=== PATIENT | female | born 1950 | race Two or more races ===

== ENCOUNTER → 2017-01-22 | Outpatient (CLI) | payer BC, MEDICARE | END | disposition home or self-care (01) | LOC: CFH 10:17 | PROVIDERS: ATTEND Specialist | DX: Z12.31 Encounter for screening mammogram for malignant neoplasm of breast (principal) | CPT/HCPCS: 77063; G0202 ==

== ENCOUNTER → 2018-03-11 | Outpatient (CLI) | payer BC, MEDICARE | END | disposition home or self-care (01) | LOC: CFH 08:51 | PROVIDERS: ATTEND Specialist | DX: Z12.31 Encounter for screening mammogram for malignant neoplasm of breast (principal) | CPT/HCPCS: 77063; 77067 ==

== ENCOUNTER 2018-09-10 10:08 | Outpatient (CLI) | payer BC, MEDICARE | END 2018-09-10 23:59 | disposition home or self-care (01) | LOC: CFH 10:08 | PROVIDERS: ATTEND Internal Medicine | DX: M79.641 Pain in right hand (principal) ==

== ENCOUNTER → 2019-04-01 | Outpatient (CLI) | payer MEDICARE, BC | END | disposition home or self-care (01) | LOC: CFH 08:44 | PROVIDERS: ATTEND Internal Medicine Cardiovascular Disease | DX: I08.0 Rheumatic disorders of both mitral and aortic valves (principal); I42.9 Cardiomyopathy, unspecified; I10 Essential (primary) hypertension; E78.5 Hyperlipidemia, unspecified; Z87.891 Personal history of nicotine dependence | CPT/HCPCS: 93306 ==

== ENCOUNTER 2019-04-08 09:23 | Outpatient (CLI) | payer MEDICARE, BC | END 2019-04-08 23:59 | disposition home or self-care (01) | LOC: CFH 09:23 | PROVIDERS: ATTEND Specialist | DX: Z12.31 Encounter for screening mammogram for malignant neoplasm of breast (principal); N63.0 Unspecified lump in unspecified breast; N64.89 Other specified disorders of breast | CPT/HCPCS: 77063; 77067 ==

== ENCOUNTER 2020-01-26 01:57 | Emergency (ER) | payer BC, MEDICARE ==
[~2020-01-26] VITALS: Ht 154.9 cm; Wt 66.0 kg
[2020-01-26] MEDS ORDERED: SODIUM CHLORIDE FLUSH 10ML SYR IVF ONE (02:30)
[2020-01-26 03:07] LABS: ALANINE AMINOTRANSFERASE 49 U/L (12-78); ALBUMIN 3.3 g/dL (3.4-5.0); ANION GAP 4 mmol/L (5-15); CHLORIDE 104 mmol/L (98-107); CREATININE 0.97 mg/dL (0.55-1.02)
[2020-01-26 03:10] LABS: ALKALINE PHOSPHATASE 62 U/L (45-117); TOTAL PROTEIN 7.3 g/dL (6.4-8.2)
[2020-01-26 03:11] LABS: BASOPHILS % (AUTO) 1 % (0-1); EOSINOPHILS % (AUTO) 0 % (1-7); LYMPHOCYTES % (AUTO) 25 % (22-44); MEAN CORPUSCULAR HEMOGLOBIN 30.7 pg (27.0-34.8); MEAN CORPUSCULAR HGB CONC 34.2 g/dL (32.4-35.8); MONOCYTES % (AUTO) 14 % (2-9); NEUTROPHILS % (AUTO) 61 % (42-75); PLATELET COUNT 164 x10^3/uL (130-400); RED BLOOD COUNT 4.28 x10^6/uL (3.82-5.3)
[2020-01-26 03:18] LABS: MD NO
[2020-01-26] MEDS ORDERED: OMNIPAQUE 350 MG/ML, 100ML BOTTLE ONE (03:45)
[2020-01-26 05:00] LABS: MICROSCOPIC AUTO
[2020-01-26] MEDS ORDERED: MAALOX/HYOSCYAMINE/LIDOCAINE 45 ML BTL PO ONE (05:30)
[2020-01-26] MEDS ORDERED: MAALOX/HYOSCYAMINE/LIDOCAINE 45 ML BTL ONE (05:58)
[2020-01-26 06:07] VITALS: BP 121/72
== END 2020-01-26 06:27 | disposition home or self-care (01) ==
LOC: ED 06:13
DX: R10.13 Epigastric pain (principal); R94.31 Abnormal electrocardiogram [ECG] [EKG]; R11.0 Nausea; I10 Essential (primary) hypertension; E78.5 Hyperlipidemia, unspecified
CPT/HCPCS: 36415; 74177; 80053; 81001; 85025; 87086; 93005; 99285; Q9967

== ENCOUNTER 2020-01-26 23:14 | Emergency (ER) | payer BC, MEDICARE ==
[~2020-01-26] VITALS: Ht 154.9 cm; Wt 66.3 kg
[2020-01-26 23:57] LABS: BASOPHILS % (AUTO) 1 % (0-1); EOSINOPHILS % (AUTO) 0 % (1-7); LYMPHOCYTES % (AUTO) 21 % (22-44); MEAN CORPUSCULAR HEMOGLOBIN 30.4 pg (27.0-34.8); MEAN PLATELET VOLUME 8.6 fL (7.4-10.4); MONOCYTES % (AUTO) 10 % (2-9); NEUTROPHILS % (AUTO) 69 % (42-75); PLATELET COUNT 190 x10^3/uL (130-400); RED BLOOD COUNT 4.41 x10^6/uL (3.82-5.3); RED CELL DISTRIBUTION WIDTH 14.5 % (9.6-15.2)
[2020-01-27] LABS: MD NO
[2020-01-27 00:08] LABS: ALANINE AMINOTRANSFERASE 50 U/L (12-78); ALBUMIN 3.4 g/dL (3.4-5.0); ANION GAP 6 mmol/L (5-15); CALCIUM 8.3 mg/dL (8.5-10.1); CHLORIDE 104 mmol/L (98-107); CREATININE 1.01 mg/dL (0.55-1.02)
[2020-01-27 00:13] LABS: ALKALINE PHOSPHATASE 63 U/L (45-117); TOTAL PROTEIN 7.6 g/dL (6.4-8.2); TROPONIN I < 0.015 ng/mL (0.000-0.045)
[2020-01-27] MEDS ORDERED: MORPHINE SULFATE 4 MG/ML, 1ML ONE ×2 (00:49→02:55)
[2020-01-27] MEDS ORDERED: ONDANSETRON 2MG/ML, 2ML ONE (00:49)
[2020-01-27] MEDS: MORPHINE SULFATE 4 MG/ML, 1ML IVPush PRN ×2 (00:53→02:58)
[2020-01-27] MEDS ORDERED: ONDANSETRON 2MG/ML, 2ML IVPush ONE (01:00)
--- NOTE | 2020-01-27 01:01 | NUR ---
report received from julianna raphael
--- NOTE | 2020-01-27 02:10 | NUR ---
pt resting in [facility], at bedside
[2020-01-27] MEDS ORDERED: MORPHINE SULFATE 4 MG/ML, 1ML IVPush PRN (02:30)
--- NOTE | 2020-01-27 02:45 | NUR ---
requesting pain and nausea medication, will medicate per emar
[2020-01-27] MEDS ORDERED: PROMETHAZINE 25 MG/ML, 1ML ONE (03:13)
[2020-01-27] MEDS ORDERED: PROMETHAZINE 25 MG/ML, 1ML IM ONE (03:30)
--- NOTE | 2020-01-27 04:00 | NUR ---
PT REPORTS BETTER RELIEF FROM PHENERGAN. MD REQUEST PT TO TRY PO CHALLENGE. WATER AND CRACKERS BROUGHT TO PT
--- NOTE | 2020-01-27 04:30 | NUR ---
PT PASSED PO CHALLENGE
[2020-01-27 05:00] VITALS: BP 108/58
--- NOTE | 2020-01-27 05:29 | NUR ---
EDUCATION GIVEN TO PT AND ABOUT MEDICATIONS PRESCRIBED WITH DISCHARGE AND MEDICATIONS PRESCRIBED FROM PREVIOUS VISIT AND NEEDING TO GIVE FEW DAYS FOR PPI TO WORK. PT ALSO EDUCATED ON BROTH AND BLAND DIET AND SLOWLY WORKING WAY UP TO REGULAR DIET TO HELP WITH SYMPTOMS. PT AND VERBALIZE UNDERSTANDING.
== END 2020-01-27 05:33 | disposition home or self-care (01) ==
LOC: ED 23:57
DX: K29.00 Acute gastritis without bleeding (principal); I10 Essential (primary) hypertension; E78.5 Hyperlipidemia, unspecified; Z90.49 Acquired absence of other specified parts of digestive tract; R94.31 Abnormal electrocardiogram [ECG] [EKG]
CPT/HCPCS: 36415; 74022; 76700; 80053; 83605; 83690; 84484; 85025; 93005; 96372; 96374; 96375; 96376; 99285; J2270; J2405; J2550

== ENCOUNTER 2020-02-04 12:38 | Emergency (ER) | payer BC, MEDICARE ==
[~2020-02-04] VITALS: Ht 154.9 cm; Wt 64.0 kg
--- NOTE | 2020-02-04 13:20 | NUR ---
PT. HAS C/O ABDOMINAL PAIN X SINCE JAN 25. PT. REPORTS ASSOCIATED NAUSEA W/OUT VOMITING HAS HAD YOLA MANY YEARS AGO
[2020-02-04 14:39] LABS: BASOPHILS % (AUTO) 1 % (0-1); EOSINOPHILS % (AUTO) 1 % (1-7); LYMPHOCYTES % (AUTO) 18 % (22-44); MEAN CORPUSCULAR HEMOGLOBIN 30.3 pg (27.0-34.8); MEAN CORPUSCULAR HGB CONC 33.5 g/dL (32.4-35.8); MEAN PLATELET VOLUME 7.3 fL (7.4-10.4); MONOCYTES % (AUTO) 10 % (2-9); NEUTROPHILS % (AUTO) 70 % (42-75); PLATELET COUNT 598 x10^3/uL (130-400); RED BLOOD COUNT 4.03 x10^6/uL (3.82-5.3); RED CELL DISTRIBUTION WIDTH 14.1 % (9.6-15.2)
[2020-02-04 14:45] LABS: ALANINE AMINOTRANSFERASE 66 U/L (12-78); ALBUMIN 3.1 g/dL (3.4-5.0); ANION GAP 6 mmol/L (5-15); CALCIUM 8.6 mg/dL (8.5-10.1); CHLORIDE 106 mmol/L (98-107); CREATININE 0.81 mg/dL (0.55-1.02)
--- NOTE | 2020-02-04 14:45 | NUR ---
PT RESTING ON [place].
[2020-02-04 14:48] LABS: ALKALINE PHOSPHATASE 92 U/L (45-117); BILIRUBIN,TOTAL 0.9 mg/dL (0.2-1.0); MD NO; TOTAL PROTEIN 7.4 g/dL (6.4-8.2)
--- NOTE | 2020-02-04 16:35 | NUR ---
PT AMBULATED TO BATHROOM. READY FOR DC
[2020-02-04 16:46] VITALS: BP 135/86
--- NOTE | 2020-02-04 16:46 | NUR ---
Patient/Caregiver given discharge instructions and they have confirmed that they understand the instructions. Patient ambulatory with steady gait.
== END 2020-02-04 16:48 | disposition home or self-care (01) ==
LOC: ED 14:01
DX: K85.90 Acute pancreatitis without necrosis or infection, unspecified (principal); R10.13 Epigastric pain; I10 Essential (primary) hypertension; E78.5 Hyperlipidemia, unspecified
CPT/HCPCS: 36415; 71045; 80053; 83690; 85025; 87635; 99284

== ENCOUNTER → 2020-02-25 | Outpatient (CLI) | payer BC, MEDICARE | END | disposition home or self-care (01) | LOC: CFH 09:03 | PROVIDERS: ATTEND Internal Medicine Cardiovascular Disease | DX: I08.0 Rheumatic disorders of both mitral and aortic valves (principal); I10 Essential (primary) hypertension; Z87.891 Personal history of nicotine dependence | CPT/HCPCS: 93306 ==

== ENCOUNTER 2020-06-09 08:24 | Outpatient (CLI) | payer MEDICARE, OTHER | END 2020-06-09 23:59 | disposition home or self-care (01) | LOC: CFH 08:24 | PROVIDERS: ATTEND Obstetrics & Gynecology Gynecology | DX: Z12.31 Encounter for screening mammogram for malignant neoplasm of breast (principal); M85.88 Other specified disorders of bone density and structure, other site | CPT/HCPCS: 77063; 77067; 77080 ==

== ENCOUNTER 2020-08-19 10:39 | Day surgery (SDC) | payer OTHER, MEDICARE ==
[~2020-08-19] VITALS: Ht 160 cm; Wt 62.0 kg
[~2020-08-19 10:39] MED LIST: ATOR20TA37 PO; DRON400T6 PO; LOSA100T14 PO; METO-93 PO; POTA20TA14 PO
[2020-08-19] MEDS ORDERED: SODIUM CHLORIDE 0.9% 1,000 ML IV ONE (11:30)
[2020-08-19] MEDS ORDERED: NALOXONE 0.4 MG/ML, 1ML IVPush PRN ×2 (11:30)
[2020-08-19] MEDS ORDERED: SACU1TAB PO (11:55)
[2020-08-19] MEDS ORDERED: IRON PO (11:55)
[2020-08-19] MEDS ORDERED: FURO20TA3 PO (11:55)
[2020-08-19 11:56] VITALS: BP 128/86
[2020-08-19] MEDS ORDERED: PROPOFOL 10 MG/ML, 20ML ONE (14:00)
== END 2020-08-19 14:00 | disposition home or self-care (01) ==
LOC: CACL 10:39
PROVIDERS: ATTEND Internal Medicine Cardiovascular Disease
DX: I34.0 Nonrheumatic mitral (valve) insufficiency (principal); I11.0 Hypertensive heart disease with heart failure; I50.43 Acute on chronic combined systolic (congestive) and diastolic (congestive) heart failure; I42.0 Dilated cardiomyopathy; I49.3 Ventricular premature depolarization; E78.5 Hyperlipidemia, unspecified; Z20.822 Contact with and (suspected) exposure to COVID-19; Z79.899 Other long term (current) drug therapy
CPT/HCPCS: 87635; 93312; 93321; 93325; J2704

== ENCOUNTER 2020-08-22 05:47 | Day surgery (SDC) | payer OTHER, MEDICARE ==
[~2020-08-22] VITALS: Ht 160 cm; Wt 60.9 kg
[~2020-08-22 05:47] MED LIST changes: +FURO20TA3 PO; +IRON PO; +SACU1TAB PO
[2020-08-22 06:21] VITALS: BP 104/71
[2020-08-22 06:48] LABS: ANION GAP 6 mmol/L (5-15); CALCIUM 9.5 mg/dL (8.5-10.1); CHLORIDE 110 mmol/L (98-107)
[2020-08-22 06:49] LABS: BASOPHILS % (AUTO) 1 % (0-1); CREATININE 0.95 mg/dL (0.55-1.02); EOSINOPHILS % (AUTO) 3 % (1-7); LYMPHOCYTES % (AUTO) 39 % (22-44); MEAN CORPUSCULAR HEMOGLOBIN 29.9 pg (27.0-34.8); MEAN CORPUSCULAR HGB CONC 33.8 g/dL (32.4-35.8); MEAN PLATELET VOLUME 9.2 fL (7.4-10.4); MONOCYTES % (AUTO) 8 % (2-9); NEUTROPHILS % (AUTO) 50 % (42-75); PLATELET COUNT 235 x10^3/uL (130-400); RED BLOOD COUNT 4.84 x10^6/uL (3.82-5.3); RED CELL DISTRIBUTION WIDTH 16.3 % (9.6-15.2)
[2020-08-22] MEDS ORDERED: MIDAZOLAM 1 MG/ML, 5ML ONE (08:20)
[2020-08-22] MEDS ORDERED: FENTANYL PF 100 MCG/2ML ONE (08:20)
[2020-08-22] MEDS ORDERED: BIVALIRUDIN 250 MG ONE (08:21)
[2020-08-22] MEDS ORDERED: LIDOCAINE-MPF 1%, 5ML ONE (08:21)
[2020-08-22] MEDS ORDERED: TICAGRELOR 90 MG TABLET ONE (08:21)
[2020-08-22] MEDS ORDERED: HEPARIN 1,000 UNITS/ML, 10ML ONE (08:21)
[2020-08-22] MEDS ORDERED: VERAPAMIL 2.5 MG/ML, 2ML ONE (08:21)
[2020-08-22] MEDS ORDERED: SODIUM CHLORIDE 0.9% 1,000 ML IV SCH (10:00)
== END 2020-08-22 10:59 | disposition home or self-care (01) ==
LOC: CACL 05:47
PROVIDERS: ATTEND Internal Medicine Cardiovascular Disease
DX: I42.0 Dilated cardiomyopathy (principal); I34.0 Nonrheumatic mitral (valve) insufficiency; I11.0 Hypertensive heart disease with heart failure; I50.43 Acute on chronic combined systolic (congestive) and diastolic (congestive) heart failure; I49.3 Ventricular premature depolarization; Z79.899 Other long term (current) drug therapy
CPT/HCPCS: 36415; 80048; 85025; 93460; 99156; C1769; C1894; J1644; J2250; J3010; Q9967; J0583

== ENCOUNTER → 2020-09-15 | Outpatient (CLI) | payer OTHER, MEDICARE ==
[~2020-09-15] MED LIST changes: +ALBUMIN HUMAN 25% 50 ML IV ONE; +ALBUMIN HUMAN 25% 50 ML ONE; +ASPI81TA45 PO; +CALCIUM CHLORIDE 10%, 10ML SYR ONE; +CHLORHEXIDINE 15 ML UDC MM PRN; +DO NOT GIVE MC SCH; +HEPARIN 1,000 UNITS/ML, 30ML ONE; +INSULIN LISPRO 100 UNITS/ML, PEN SQ-INSULIN SCH; +LIDOCAINE 2%, 20ML ONE; +MAGNESIUM SULFATE PMX 2GM/50ML 50 ML IVPB ONE; +MAGNESIUM SULFATE PMX 2GM/50ML 50 ML ONE; +MANNITOL 0.25 GM/ML, 50ML ONE; +MUPIROCIN OINT 2%, 15GM NAS SCH; +OMEP-110 PO; +OXYC5TAB98 PO; +SODIUM BICARBONATE 1 MEQ/ML, 50ML VIAL ONE; +SODIUM CHLORIDE FLUSH 10ML SYR IVF SCH; +SPIR25TA5 PO; +WARF2.5T32 PO; +methylPREDNISolone SOD SUCC 125 MG/2 ML ONE
[2020-09-15 14:26] LABS: BASOPHILS % (AUTO) 1 % (0-1); EOSINOPHILS % (AUTO) 2 % (1-7); LYMPHOCYTES % (AUTO) 37 % (22-44); MEAN CORPUSCULAR HGB CONC 33.3 g/dL (32.4-35.8); MEAN PLATELET VOLUME 8.9 fL (7.4-10.4); MONOCYTES % (AUTO) 9 % (2-9); NEUTROPHILS % (AUTO) 51 % (42-75); PLATELET COUNT 223 x10^3/uL (130-400); RED BLOOD COUNT 4.86 x10^6/uL (3.82-5.3); RED CELL DISTRIBUTION WIDTH 16.8 % (9.6-15.2)
[2020-09-15 14:30] LABS: MICROSCOPIC AUTO
[2020-09-15 14:37] LABS: ALANINE AMINOTRANSFERASE 42 U/L (12-78); ALBUMIN 4.3 g/dL (3.4-5.0); ANION GAP 3 mmol/L (5-15); CALCIUM 9.2 mg/dL (8.5-10.1); CHLORIDE 104 mmol/L (98-107); CREATININE 0.92 mg/dL (0.55-1.02)
[2020-09-15 14:40] LABS: ALKALINE PHOSPHATASE 62 U/L (45-117); BILIRUBIN,TOTAL 1.7 mg/dL (0.2-1.0); TOTAL PROTEIN 8.3 g/dL (6.4-8.2)
[2020-09-15 14:42] LABS: INTERNATIONAL NORMALIZED RATIO 1.04 (0.93-1.1); PROTHROMBIN TIME 11.1 Seconds (9.6-11.5)
== END | disposition home or self-care (01) ==
LOC: CVU 11:56
PROVIDERS: ATTEND Thoracic Surgery (Cardiothoracic Vascular Surgery)
DX: I34.0 Nonrheumatic mitral (valve) insufficiency (principal); I10 Essential (primary) hypertension; E78.5 Hyperlipidemia, unspecified; Z79.01 Long term (current) use of anticoagulants; Z79.899 Other long term (current) drug therapy
CPT/HCPCS: 36415; 71046; 80053; 81001; 83036; 85025; 85610; 85730; 86900; 93005; 93880; J1644; J2150; J2930; J3475; J3490; P9047; 86850; 86923

== ENCOUNTER 2020-09-16 03:43 | Inpatient (IN) | payer OTHER, MEDICARE ==
[~2020-09-16] VITALS: Ht 160 cm; Wt 65.0 kg
[~2020-09-16 03:43] MED LIST changes: -ALBUMIN HUMAN 25% 50 ML IV ONE; -ALBUMIN HUMAN 25% 50 ML ONE; -ASPI81TA45 PO; -CALCIUM CHLORIDE 10%, 10ML SYR ONE; -CHLORHEXIDINE 15 ML UDC MM PRN; -DO NOT GIVE MC SCH; -HEPARIN 1,000 UNITS/ML, 30ML ONE; -INSULIN LISPRO 100 UNITS/ML, PEN SQ-INSULIN SCH; -LIDOCAINE 2%, 20ML ONE; -MAGNESIUM SULFATE PMX 2GM/50ML 50 ML IVPB ONE; -MAGNESIUM SULFATE PMX 2GM/50ML 50 ML ONE; -MANNITOL 0.25 GM/ML, 50ML ONE; -MUPIROCIN OINT 2%, 15GM NAS SCH; -OMEP-110 PO; -OXYC5TAB98 PO; -SODIUM BICARBONATE 1 MEQ/ML, 50ML VIAL ONE; -SODIUM CHLORIDE FLUSH 10ML SYR IVF SCH; -SPIR25TA5 PO; -WARF2.5T32 PO; -methylPREDNISolone SOD SUCC 125 MG/2 ML ONE
[2020-09-16 03:57] VITALS: BP_SYST 123; BP_SYST 127; BP_DIAS 78; BP_DIAS 79
[2020-09-16] MEDS ORDERED: MUPIROCIN OINT 2%, 22GM ONE (04:29)
[2020-09-16] MEDS ORDERED: CHLORHEXIDINE 15 ML UDC MM SCH (04:30)
[2020-09-16] MEDS ORDERED: DO NOT GIVE MC SCH (04:30)
[2020-09-16] MEDS ORDERED: INSULIN LISPRO 100 UNITS/ML, PEN SQ-INSULIN SCH (04:30)
[2020-09-16] MEDS: MUPIROCIN OINT 2%, 15GM TP SCH ×2 (04:45→18:23)
[2020-09-16] MEDS ORDERED: EPINEPHRINE 1 MG/ML, 1ML ONE (06:45)
[2020-09-16] MEDS ORDERED: AMINOCAPROIC ACID 250 MG/ML, 20ML ONE ×2 (06:45)
[2020-09-16] MEDS ORDERED: PHENYLEPHRINE 10 MG/ML ONE (06:45)
[2020-09-16] MEDS ORDERED: ROCURONIUM 10MG/ML,5ML ONE ×2 (06:45)
[2020-09-16] MEDS ORDERED: PROPOFOL 10 MG/ML, 20ML ONE (06:45)
[2020-09-16] MEDS ORDERED: MIDAZOLAM 10MG/2 ML ONE (06:46)
[2020-09-16] MEDS ORDERED: FENTANYL PF 250 MCG/5ML ONE ×4 (06:46)
[2020-09-16] MEDS ORDERED: DEXMEDETOMIDINE 200 MCG in SODIUM CHLORIDE 0.9% 48 ML IV PRN (07:30)
[2020-09-16] MEDS ORDERED: VANCOMYCIN 900 MG in SODIUM CHLORIDE 0.9% 100 ML IV PRN (07:30)
[2020-09-16] MEDS ORDERED: MANNITOL PMX 20% 500 ML IVPB PRN (07:30)
[2020-09-16] MEDS ORDERED: POTASSIUM CHLORIDE 80 MEQ, SODIUM BICARBONATE 8.4% 10 MEQ, MAGNESIUM SULFATE 0.5 GM, LI... IV PRN (07:30)
[2020-09-16] MEDS ORDERED: CEFUROXIME 1.5 GM in SODIUM CHLORIDE 0.9% 50 ML IVPB PRN (07:30)
[2020-09-16] MEDS ORDERED: REGULAR INSULIN 100 UNITS in SODIUM CHLORIDE 0.9% 99 ML IV PRN ×2 (07:30→11:00)
[2020-09-16] MEDS ORDERED: ALBUMIN HUMAN 5% 500 ML IV PRN ×2 (07:30→11:00)
[2020-09-16] MEDS ORDERED: EPINEPHRINE 5 MG in SODIUM CHLORIDE 0.9% 245 ML IV PRN ×2 (07:30→11:00)
[2020-09-16] MEDS ORDERED: PHENYLEPHRINE 50 MG in SODIUM CHLORIDE 0.9% 245 ML IV PRN (07:30)
[2020-09-16] MEDS: SODIUM CHLORIDE FLUSH 10ML SYR IVF SCH ×3 (09:00→20:08)
[2020-09-16] MEDS ORDERED: PROTAMINE SULFATE 10 MG/ML, 25ML ONE (09:03)
[2020-09-16] MEDS ORDERED: CALCIUM CHLORIDE 10%, 10ML SYR ONE (10:26)
[2020-09-16] MEDS ORDERED: AMIODARONE 50 MG/ML, 3ML ONE (10:26)
[2020-09-16] MEDS ORDERED: SODIUM BICARB 8.4%, 50ML SYRINGE ONE (10:27)
[2020-09-16] MEDS ORDERED: FENTANYL PF 100 MCG/2ML ONE (10:37)
[2020-09-16] MEDS ORDERED: DEXMEDETOMIDINE 400 MCG in SODIUM CHLORIDE 0.9% 96 ML IV PRN (11:00)
[2020-09-16] MEDS ORDERED: INSULIN REGULAR 100 UNITS/ML, 3ML VIAL IVPush PRN (11:00)
[2020-09-16] MEDS ORDERED: morphine SULFATE 10 MG/ML, 1ML IVPush PRN (11:00)
[2020-09-16] MEDS ORDERED: GLUCAGON 1 MG IM PRN (11:00)
[2020-09-16] MEDS ORDERED: SODIUM BICARB 8.4%, 50ML SYRINGE IV PRN (11:00)
[2020-09-16] MEDS ORDERED: SODIUM CHLORIDE 0.9% 1,000 ML IV SCH (11:00)
[2020-09-16] MEDS ORDERED: DEXTROSE 4 GM TAB.CHEW PO PRN (11:00)
[2020-09-16] MEDS ORDERED: FENTANYL PF 100 MCG/2ML IV PRN (11:00)
[2020-09-16] MEDS ORDERED: ONDANSETRON 2MG/ML, 2ML IVPush PRN (11:00)
[2020-09-16] MEDS ORDERED: PROMETHAZINE 25 MG SUPP PR PRN (11:00)
[2020-09-16] MEDS ORDERED: MIDAZOLAM 1 MG/ML, 2ML IV PRN (11:00)
[2020-09-16] MEDS ORDERED: CALCIUM CHLORIDE 13.6 MEQ in SODIUM CHLORIDE 0.9% 100 ML IVPB PRN (11:00)
[2020-09-16] MEDS: KSCALE TO 4.5 IV SCH ×3 (11:00→23:00)
[2020-09-16] MEDS ORDERED: LACTATED RINGERS 500 ML IV PRN (11:00)
[2020-09-16] MEDS ORDERED: DEXTROSE 50%, 50ML SYRINGE IVPush PRN (11:00)
[2020-09-16] MEDS ORDERED: VASOPRESSIN 20 UNIT in SODIUM CHLORIDE 0.9% 99 ML IV PRN (11:00)
[2020-09-16] MEDS: ACETAMINOPHEN 500 MG TABLET PO SCH ×3 (11:00→23:17)
[2020-09-16] MEDS ORDERED: PROCHLORPERAZINE 5 MG/ML, 2ML IVPush PRN (11:00)
[2020-09-16 11:28] LABS: GLUCOSE BY BLOOD GAS ANALYZER 178 mg/dL (70-110); HEMOGLOBIN BY BLOOD GAS ANALYZ 12.4 g/dL (14.0-18.0)
[2020-09-16 11:41] LABS: INTERNATIONAL NORMALIZED RATIO 1.32 (0.93-1.1); PROTHROMBIN TIME 13.9 Seconds (9.6-11.5)
[2020-09-16] MEDS: INSULIN LISPRO 100 UNITS/ML, PEN SQ-INSULIN SCH ×4 (11:44→23:00)
[2020-09-16] MEDS: MAGNESIUM SULFATE 1 GM in SODIUM CHLORIDE 0.9% 100 ML IVPB SCH (12:23)
[2020-09-16] MEDS ORDERED: POTASSIUM CHLORIDE PMX 100 ML IV ONE (18:00)
[2020-09-16] MEDS: CEFUROXIME 1.5 GM in SODIUM CHLORIDE 0.9% 50 ML IVPB SCH (20:08)
[2020-09-16] MEDS ORDERED: DIPHENHYDRAMINE 25 MG CAPSULE PO PRN (21:00)
[2020-09-16] MEDS: VANCOMYCIN 900 MG in SODIUM CHLORIDE 0.9% 100 ML IVPB SCH (21:13)
[2020-09-17] MEDS: OXYcodone IR 5MG TABLET PO PRN ×5 (02:31→20:50)
[2020-09-17 04:47] LABS: BASOPHILS % (AUTO) 0 % (0-1); EOSINOPHILS % (AUTO) 0 % (1-7); LYMPHOCYTES % (AUTO) 7 % (22-44); MEAN CORPUSCULAR HGB CONC 33.6 g/dL (32.4-35.8); MEAN PLATELET VOLUME 9.2 fL (7.4-10.4); MONOCYTES % (AUTO) 9 % (2-9); NEUTROPHILS % (AUTO) 84 % (42-75); PLATELET COUNT 122 x10^3/uL (130-400); RED CELL DISTRIBUTION WIDTH 16.2 % (9.6-15.2)
[2020-09-17 04:51] LABS: ANION GAP 7 mmol/L (5-15); CALCIUM 8.3 mg/dL (8.5-10.1); CHLORIDE 110 mmol/L (98-107); CREATININE 0.71 mg/dL (0.55-1.02)
[2020-09-17] MEDS ORDERED: POTASSIUM CHLORIDE PMX 100 ML IV ONE (05:00)
[2020-09-17] MEDS: KSCALE TO 4.5 IV SCH (05:00)
[2020-09-17] MEDS: INSULIN LISPRO 100 UNITS/ML, PEN SQ-INSULIN SCH ×5 (05:24→20:43)
[2020-09-17] MEDS: ACETAMINOPHEN 500 MG TABLET PO SCH ×4 (05:26→23:54)
[2020-09-17] MEDS: MUPIROCIN OINT 2%, 15GM NAS SCH ×2 (05:27→17:33)
[2020-09-17] MEDS: MUPIROCIN OINT 2%, 15GM TP SCH ×2 (05:27→17:34)
[2020-09-17 07:36] LABS: INTERNATIONAL NORMALIZED RATIO 1.06 (0.93-1.1); PROTHROMBIN TIME 11.3 Seconds (9.6-11.5)
[2020-09-17] MEDS: OMEPRAZOLE 20 MG CAPSULE.DR PO SCH (07:37)
[2020-09-17] MEDS: CEFUROXIME 1.5 GM in SODIUM CHLORIDE 0.9% 50 ML IVPB SCH (07:38)
[2020-09-17] MEDS: VANCOMYCIN 900 MG in SODIUM CHLORIDE 0.9% 100 ML IVPB SCH (07:38)
[2020-09-17] MEDS ORDERED: OXYcodone IR 5MG TABLET PO PRN (08:30)
[2020-09-17] MEDS: SODIUM CHLORIDE FLUSH 10ML SYR IVF SCH ×4 (08:44→20:50)
[2020-09-17] MEDS: METOPROLOL TARTRATE 25 MG TAB PO/NG SCH ×2 (08:52→20:43)
[2020-09-17] MEDS: POTASSIUM CHLORIDE 10 MEQ TABLET.ER PO SCH (08:52)
[2020-09-17] MEDS: SENNA/DOCUSATE TABLET PO SCH ×2 (08:52→20:42)
[2020-09-17] MEDS: ASPIRIN 81 MG TABLET EC PO SCH (08:52)
[2020-09-17] MEDS: DOCUSATE 100 MG CAPSULE PO SCH ×2 (08:52→20:42)
[2020-09-17] MEDS: CHLORHEXIDINE 15 ML UDC MM SCH ×2 (08:53→20:43)
[2020-09-17] MEDS: WARFARIN BIOPROSTHETIC VALVE PROTOCOL 2-3 XX SCH (08:55)
[2020-09-17] MEDS: POLYETHYLENE GLYCOL 17 GM PACKET PO SCH (08:55)
[2020-09-17] MEDS ORDERED: FUROSEMIDE 20 MG/2 ML IV SCH (09:00)
[2020-09-17] MEDS: MAGNESIUM SULFATE 1 GM in SODIUM CHLORIDE 0.9% 100 ML IVPB SCH (11:22)
[2020-09-17] MEDS ORDERED: WARFARIN 5 MG TABLET PO-COUM ONE (18:00)
[2020-09-17 20:33] VITALS: BP 118/76
[2020-09-18 00:03] VITALS: BP 116/66
[2020-09-18] MEDS: MUPIROCIN OINT 2%, 15GM TP SCH ×2 (05:25→18:00)
[2020-09-18] MEDS: MUPIROCIN OINT 2%, 15GM NAS SCH ×2 (05:25→18:14)
[2020-09-18] MEDS: ACETAMINOPHEN 500 MG TABLET PO SCH ×4 (05:25→23:47)
[2020-09-18 05:42] LABS: ANION GAP 3 mmol/L (5-15); CALCIUM 7.7 mg/dL (8.5-10.1); CHLORIDE 106 mmol/L (98-107)
[2020-09-18 05:44] LABS: CREATININE 0.59 mg/dL (0.55-1.02)
[2020-09-18 05:55] LABS: BASOPHILS % (AUTO) 0 % (0-1); EOSINOPHILS % (AUTO) 1 % (1-7); LYMPHOCYTES % (AUTO) 13 % (22-44); MEAN CORPUSCULAR HEMOGLOBIN 30.2 pg (27.0-34.8); MEAN CORPUSCULAR HGB CONC 33.4 g/dL (32.4-35.8); MEAN PLATELET VOLUME 9.4 fL (7.4-10.4); MONOCYTES % (AUTO) 9 % (2-9); NEUTROPHILS % (AUTO) 77 % (42-75); PLATELET COUNT 89 x10^3/uL (130-400); RED BLOOD COUNT 2.86 x10^6/uL (3.82-5.3); RED CELL DISTRIBUTION WIDTH 16.4 % (9.6-15.2)
[2020-09-18 06:01] LABS: INTERNATIONAL NORMALIZED RATIO 1.05 (0.93-1.1); PROTHROMBIN TIME 11.2 Seconds (9.6-11.5)
[2020-09-18 07:54] VITALS: BP 123/73
[2020-09-18] MEDS: CHLORHEXIDINE 15 ML UDC MM SCH ×2 (08:46→20:24)
[2020-09-18] MEDS: INSULIN LISPRO 100 UNITS/ML, PEN SQ-INSULIN SCH ×4 (08:46→20:24)
[2020-09-18] MEDS: DOCUSATE 100 MG CAPSULE PO SCH ×2 (08:47→20:24)
[2020-09-18] MEDS: FUROSEMIDE 40 MG/4 ML IV SCH (08:47)
[2020-09-18] MEDS: ASPIRIN 81 MG TABLET EC PO SCH (08:47)
[2020-09-18] MEDS: POTASSIUM CHLORIDE 10 MEQ TABLET.ER PO SCH (08:47)
[2020-09-18] MEDS: OMEPRAZOLE 20 MG CAPSULE.DR PO SCH (08:48)
[2020-09-18] MEDS: SODIUM CHLORIDE FLUSH 10ML SYR IVF SCH ×4 (08:48→20:24)
[2020-09-18] MEDS: WARFARIN BIOPROSTHETIC VALVE PROTOCOL 2-3 XX SCH (08:49)
[2020-09-18] MEDS: SENNA/DOCUSATE TABLET PO SCH ×2 (08:49→20:24)
[2020-09-18] MEDS: POLYETHYLENE GLYCOL 17 GM PACKET PO SCH ×2 (08:49→13:09)
[2020-09-18] MEDS: OXYcodone IR 5MG TABLET PO PRN (09:06)
[2020-09-18] MEDS ORDERED: BISACODYL 10 MG SUPP PR PRN (11:00)
[2020-09-18] MEDS ORDERED: MAGNESIUM SULFATE/D5W 0 ML ONE (12:36)
[2020-09-18 12:40] VITALS: BP 117/68
[2020-09-18] MEDS: MAGNESIUM SULFATE 1 GM in SODIUM CHLORIDE 0.9% 100 ML IVPB SCH (12:57)
[2020-09-18] MEDS ORDERED: WARFARIN 5 MG TABLET PO-COUM ONE (18:00)
[2020-09-18 19:53] VITALS: BP 122/75
[2020-09-19 02:04] VITALS: BP 135/73
[2020-09-19] MEDS: MUPIROCIN OINT 2%, 15GM TP SCH ×2 (05:24→18:00)
[2020-09-19] MEDS: MUPIROCIN OINT 2%, 15GM NAS SCH ×2 (05:24→18:35)
[2020-09-19] MEDS: ACETAMINOPHEN 500 MG TABLET PO SCH ×3 (05:24→18:35)
[2020-09-19 05:31] LABS: BASOPHILS % (AUTO) 0 % (0-1); EOSINOPHILS % (AUTO) 1 % (1-7); LYMPHOCYTES % (AUTO) 15 % (22-44); MEAN CORPUSCULAR HGB CONC 34.4 g/dL (32.4-35.8); MEAN PLATELET VOLUME 9.1 fL (7.4-10.4); MONOCYTES % (AUTO) 8 % (2-9); NEUTROPHILS % (AUTO) 76 % (42-75); PLATELET COUNT 104 x10^3/uL (130-400); RED CELL DISTRIBUTION WIDTH 16.3 % (9.6-15.2)
[2020-09-19 05:36] LABS: CHLORIDE 106 mmol/L (98-107); INTERNATIONAL NORMALIZED RATIO 1.55 (0.93-1.1); PROTHROMBIN TIME 16.2 Seconds (9.6-11.5)
[2020-09-19 05:42] LABS: ANION GAP 3 mmol/L (5-15); CALCIUM 8.1 mg/dL (8.5-10.1); CREATININE 0.42 mg/dL (0.55-1.02)
[2020-09-19] MEDS: INSULIN LISPRO 100 UNITS/ML, PEN SQ-INSULIN SCH ×3 (07:00→16:00)
[2020-09-19] MEDS: OMEPRAZOLE 20 MG CAPSULE.DR PO SCH (07:30)
[2020-09-19] MEDS: POTASSIUM CHLORIDE 10 MEQ TABLET.ER PO SCH (07:31)
[2020-09-19 08:10] VITALS: BP 126/74
[2020-09-19] MEDS: SENNA/DOCUSATE TABLET PO SCH ×2 (09:00→21:00)
[2020-09-19] MEDS: DOCUSATE 100 MG CAPSULE PO SCH ×2 (09:00→21:00)
[2020-09-19] MEDS: POLYETHYLENE GLYCOL 17 GM PACKET PO SCH (09:00)
[2020-09-19] MEDS: SODIUM CHLORIDE FLUSH 10ML SYR IVF SCH ×4 (09:00→21:39)
[2020-09-19] MEDS: WARFARIN BIOPROSTHETIC VALVE PROTOCOL 2-3 XX SCH (09:00)
[2020-09-19] MEDS: FUROSEMIDE 40 MG/4 ML IV SCH (09:16)
[2020-09-19] MEDS: METOPROLOL TARTRATE 25 MG TAB PO SCH ×2 (09:17→18:35)
[2020-09-19] MEDS: ASPIRIN 81 MG TABLET EC PO SCH (09:17)
[2020-09-19] MEDS: DRONEDARONE 400MG TABLET PO SCH ×2 (10:42→21:40)
[2020-09-19] MEDS: SACUBITRIL/VALSARTAN 24MG-26MG TAB PO SCH ×2 (10:42→21:39)
[2020-09-19 13:40] VITALS: BP 108/70
[2020-09-19] MEDS ORDERED: WARFARIN 3 MG TABLET PO-COUM ONE (18:00)
[2020-09-19] MEDS ORDERED: WARFARIN 1 MG TABLET PO-COUM ONE (18:33)
[2020-09-19] MEDS ORDERED: WARFARIN 5 MG TABLET PO-COUM ONE (18:33)
[2020-09-19 19:45] VITALS: BP 118/75
[2020-09-19] MEDS: ATORVASTATIN 20 MG TABLET PO SCH (21:40)
[2020-09-20 00:20] VITALS: BP 118/75
[2020-09-20] MEDS: ACETAMINOPHEN 500 MG TABLET PO SCH ×4 (00:25→20:50)
[2020-09-20] MEDS: METOPROLOL TARTRATE 25 MG TAB PO SCH ×2 (05:33→17:36)
[2020-09-20] MEDS: MUPIROCIN OINT 2%, 15GM NAS SCH ×2 (05:33→17:34)
[2020-09-20 05:50] LABS: BASOPHILS % (AUTO) 0 % (0-1); EOSINOPHILS % (AUTO) 2 % (1-7); LYMPHOCYTES % (AUTO) 19 % (22-44); MEAN CORPUSCULAR HEMOGLOBIN 30.6 pg (27.0-34.8); MEAN CORPUSCULAR HGB CONC 34.6 g/dL (32.4-35.8); MEAN PLATELET VOLUME 8.7 fL (7.4-10.4); MONOCYTES % (AUTO) 9 % (2-9); NEUTROPHILS % (AUTO) 70 % (42-75); PLATELET COUNT 174 x10^3/uL (130-400); RED BLOOD COUNT 3.21 x10^6/uL (3.82-5.3); RED CELL DISTRIBUTION WIDTH 16.4 % (9.6-15.2)
[2020-09-20 05:59] LABS: ANION GAP 3 mmol/L (5-15); CALCIUM 8.2 mg/dL (8.5-10.1); CHLORIDE 106 mmol/L (98-107)
[2020-09-20 06:04] LABS: CREATININE 0.38 mg/dL (0.55-1.02)
[2020-09-20 06:06] LABS: INTERNATIONAL NORMALIZED RATIO 2.55 (0.93-1.1); PROTHROMBIN TIME 26.1 Seconds (9.6-11.5)
[2020-09-20 06:46] VITALS: BP 113/75
[2020-09-20] MEDS: POTASSIUM CHLORIDE 10 MEQ TABLET.ER PO SCH (08:50)
[2020-09-20] MEDS: OMEPRAZOLE 20 MG CAPSULE.DR PO SCH (08:50)
[2020-09-20] MEDS: DRONEDARONE 400MG TABLET PO SCH ×2 (08:50→20:50)
[2020-09-20] MEDS: ASPIRIN 81 MG TABLET EC PO SCH (08:50)
[2020-09-20] MEDS: FUROSEMIDE 40 MG/4 ML IV SCH (08:51)
[2020-09-20] MEDS: SODIUM CHLORIDE FLUSH 10ML SYR IVF SCH ×4 (08:51→20:50)
[2020-09-20] MEDS: WARFARIN BIOPROSTHETIC VALVE PROTOCOL 2-3 XX SCH (08:52)
[2020-09-20] MEDS: SACUBITRIL/VALSARTAN 24MG-26MG TAB PO SCH ×2 (08:52→20:50)
[2020-09-20] MEDS: DOCUSATE 100 MG CAPSULE PO SCH ×2 (08:52→20:50)
[2020-09-20] MEDS: POLYETHYLENE GLYCOL 17 GM PACKET PO SCH (08:52)
[2020-09-20] MEDS: SENNA/DOCUSATE TABLET PO SCH ×2 (09:00→20:49)
[2020-09-20 13:55] VITALS: BP 103/73
[2020-09-20] MEDS ORDERED: WARFARIN 3 MG TABLET PO-COUM ONE (18:00)
[2020-09-20 18:58] VITALS: BP 101/70
[2020-09-20] MEDS: ATORVASTATIN 20 MG TABLET PO SCH (20:50)
[2020-09-20 23:28] VITALS: BP 111/74
[2020-09-21 02:56] VITALS: BP 111/74
[2020-09-21] MEDS: ACETAMINOPHEN 500 MG TABLET PO SCH ×2 (03:20→08:07)
[2020-09-21 05:38] LABS: BASOPHILS % (AUTO) 1 % (0-1); EOSINOPHILS % (AUTO) 3 % (1-7); LYMPHOCYTES % (AUTO) 23 % (22-44); MEAN CORPUSCULAR HEMOGLOBIN 30.4 pg (27.0-34.8); MEAN CORPUSCULAR HGB CONC 34.5 g/dL (32.4-35.8); MEAN PLATELET VOLUME 8.1 fL (7.4-10.4); MONOCYTES % (AUTO) 13 % (2-9); NEUTROPHILS % (AUTO) 62 % (42-75); PLATELET COUNT 218 x10^3/uL (130-400); RED BLOOD COUNT 3.16 x10^6/uL (3.82-5.3); RED CELL DISTRIBUTION WIDTH 16.5 % (9.6-15.2)
[2020-09-21] MEDS: MUPIROCIN OINT 2%, 15GM NAS SCH ×2 (05:46→18:09)
[2020-09-21] MEDS: METOPROLOL TARTRATE 25 MG TAB PO SCH ×2 (05:47→18:09)
[2020-09-21 05:53] LABS: ANION GAP 4 mmol/L (5-15); CALCIUM 8.5 mg/dL (8.5-10.1); CHLORIDE 104 mmol/L (98-107); CREATININE 0.55 mg/dL (0.55-1.02)
[2020-09-21 06:00] LABS: INTERNATIONAL NORMALIZED RATIO 5.42 (0.93-1.1); PROTHROMBIN TIME 53.5 Seconds (9.6-11.5)
[2020-09-21 07:18] VITALS: BP 113/74
[2020-09-21] MEDS: FUROSEMIDE 40 MG/4 ML IV SCH ×2 (08:01→10:05)
[2020-09-21] MEDS: OMEPRAZOLE 20 MG CAPSULE.DR PO SCH (08:02)
[2020-09-21] MEDS: DOCUSATE 100 MG CAPSULE PO SCH ×2 (08:02→20:31)
[2020-09-21] MEDS: SACUBITRIL/VALSARTAN 24MG-26MG TAB PO SCH ×2 (08:02→20:39)
[2020-09-21] MEDS: POTASSIUM CHLORIDE 10 MEQ TABLET.ER PO SCH (08:02)
[2020-09-21] MEDS: POLYETHYLENE GLYCOL 17 GM PACKET PO SCH (08:02)
[2020-09-21] MEDS: DRONEDARONE 400MG TABLET PO SCH ×2 (08:02→20:39)
[2020-09-21] MEDS: ASPIRIN 81 MG TABLET EC PO SCH (08:02)
[2020-09-21] MEDS: WARFARIN BIOPROSTHETIC VALVE PROTOCOL 2-3 XX SCH (08:03)
[2020-09-21] MEDS: SENNA/DOCUSATE TABLET PO SCH ×2 (08:03→20:25)
[2020-09-21] MEDS: SODIUM CHLORIDE FLUSH 10ML SYR IVF SCH ×4 (08:05→20:29)
[2020-09-21 15:18] VITALS: BP 105/69
[2020-09-21 18:08] VITALS: BP 113/75
[2020-09-21 20:00] VITALS: BP 118/80
[2020-09-21] MEDS: ATORVASTATIN 20 MG TABLET PO SCH (20:39)
[2020-09-22 00:30] VITALS: BP 118/76
[2020-09-22 05:09] LABS: BASOPHILS % (AUTO) 1 % (0-1); EOSINOPHILS % (AUTO) 2 % (1-7); LYMPHOCYTES % (AUTO) 21 % (22-44); MEAN CORPUSCULAR HGB CONC 34.9 g/dL (32.4-35.8); MEAN PLATELET VOLUME 7.7 fL (7.4-10.4); MONOCYTES % (AUTO) 11 % (2-9); NEUTROPHILS % (AUTO) 66 % (42-75); PLATELET COUNT 280 x10^3/uL (130-400); RED BLOOD COUNT 3.43 x10^6/uL (3.82-5.3); RED CELL DISTRIBUTION WIDTH 16.4 % (9.6-15.2)
[2020-09-22 05:17] LABS: INTERNATIONAL NORMALIZED RATIO 4.2 (0.93-1.1)
[2020-09-22 05:18] LABS: CHLORIDE 103 mmol/L (98-107)
[2020-09-22 05:29] LABS: ANION GAP 5 mmol/L (5-15); CALCIUM 8.9 mg/dL (8.5-10.1); CREATININE 0.59 mg/dL (0.55-1.02)
[2020-09-22] MEDS: METOPROLOL TARTRATE 25 MG TAB PO SCH (06:12)
[2020-09-22 07:40] VITALS: BP 121/79
[2020-09-22 08:05] VITALS: BP 105/69
[2020-09-22] MEDS: FUROSEMIDE 40 MG/4 ML IV SCH (08:14)
[2020-09-22] MEDS: ASPIRIN 81 MG TABLET EC PO SCH (08:14)
[2020-09-22] MEDS: DRONEDARONE 400MG TABLET PO SCH (08:15)
[2020-09-22] MEDS: DOCUSATE 100 MG CAPSULE PO SCH (08:15)
[2020-09-22] MEDS: OMEPRAZOLE 20 MG CAPSULE.DR PO SCH (08:16)
[2020-09-22] MEDS: SACUBITRIL/VALSARTAN 24MG-26MG TAB PO SCH (08:16)
[2020-09-22] MEDS: POTASSIUM CHLORIDE 10 MEQ TABLET.ER PO SCH (08:16)
[2020-09-22] MEDS: SODIUM CHLORIDE FLUSH 10ML SYR IVF SCH ×2 (08:17)
[2020-09-22] MEDS: WARFARIN BIOPROSTHETIC VALVE PROTOCOL 2-3 XX SCH (08:18)
[2020-09-22] MEDS: POLYETHYLENE GLYCOL 17 GM PACKET PO SCH (08:18)
[2020-09-22] MEDS: SENNA/DOCUSATE TABLET PO SCH (08:18)
[2020-09-22] MEDS ORDERED: OMEP-110 PO (11:10)
[2020-09-22] MEDS ORDERED: OXYC5TAB98 PO (11:10)
[2020-09-22] MEDS ORDERED: ASPI81TA45 PO (11:10)
[2020-09-22] MEDS ORDERED: WARF2.5T32 PO (11:10)
[2020-09-22] MEDS ORDERED: SPIR25TA5 PO (11:10)
[2020-09-22] MEDS ORDERED: WARFARIN 1 MG TABLET PO-COUM ONE (18:00)
== END 2020-09-22 14:25 | disposition home health service (06) | DRG 273 ==
LOC: 5SO 03:43 → CSU 07:09 → 5SO 09-17 15:55 → DCLOUNGE 09-22 14:11
PROVIDERS: ADMIT Thoracic Surgery (Cardiothoracic Vascular Surgery); ATTEND Thoracic Surgery (Cardiothoracic Vascular Surgery)
PROC: B246ZZ4 Ultrasonography of Right and Left Heart, Transesophageal (ICD-10-PCS; 2020-09-16)
PROC: 5A1221Z Performance of Cardiac Output, Continuous (ICD-10-PCS; 2020-09-16)
PROC: 02B70ZK Excision of Left Atrial Appendage, Open Approach (ICD-10-PCS; 2020-09-16)
PROC: 02L70CK Occlusion of Left Atrial Appendage with Extraluminal Device, Open Approach (ICD-10-PCS; principal; 2020-09-16 07:30)
DX: I34.0 Nonrheumatic mitral (valve) insufficiency (principal); I46.9 Cardiac arrest, cause unspecified; I42.0 Dilated cardiomyopathy; I45.4 Nonspecific intraventricular block; I49.3 Ventricular premature depolarization; Z79.899 Other long term (current) drug therapy; Z79.82 Long term (current) use of aspirin; Z79.01 Long term (current) use of anticoagulants
CPT/HCPCS: 36415; 36600; J3490; S0017; 71045; 71046; 80048; 82330; 82800; 82803; 82810; 82947; 82962; 83735; 84132; 84295; 85014; 85018; 85025; 85049; 85347; 85610; 85730; 86850; 86900; 86923; 87081; 88305; 93005; 93312; 93321; 93325; 94002; 94150; G0378; J0171; J0697; J1815; J1940; J2250; J2405; J2704; J2720; J3010; J3370; J3475; J3480; J7120; P9045; U0005; C1751; C1760; C1762; J0282; J2370; J7050; U0003

== ENCOUNTER 2020-11-09 08:30 | Outpatient (CLI) | payer OTHER ==
[~2020-11-09 08:30] MED LIST changes: +ASPI81TA45 PO; +OMEP-110 PO; +OXYC5TAB98 PO; +SPIR25TA5 PO; +WARF2.5T32 PO
[2020-11-09 08:53] LABS: BASOPHILS % (AUTO) 1 % (0-1); EOSINOPHILS % (AUTO) 2 % (1-7); LYMPHOCYTES % (AUTO) 33 % (22-44); MEAN CORPUSCULAR HEMOGLOBIN 30.9 pg (27.0-34.8); MEAN CORPUSCULAR HGB CONC 33.5 g/dL (32.4-35.8); MEAN PLATELET VOLUME 7.8 fL (7.4-10.4); MONOCYTES % (AUTO) 7 % (2-9); NEUTROPHILS % (AUTO) 58 % (42-75); PLATELET COUNT 299 x10^3/uL (130-400); RED BLOOD COUNT 4.04 x10^6/uL (3.82-5.3)
[2020-11-09 09:05] LABS: ALBUMIN 3.7 g/dL (3.4-5.0); ANION GAP 4 mmol/L (5-15); CALCIUM 9.1 mg/dL (8.5-10.1); CHLORIDE 107 mmol/L (98-107)
[2020-11-09 09:08] LABS: ALANINE AMINOTRANSFERASE 27 U/L (12-78); ALKALINE PHOSPHATASE 62 U/L (45-117); BILIRUBIN,TOTAL 1.4 mg/dL (0.2-1.0); CREATININE 0.73 mg/dL (0.55-1.02); TOTAL PROTEIN 7.3 g/dL (6.4-8.2)
== END 2020-11-09 23:59 | disposition home or self-care (01) ==
LOC: LAB 08:30
PROVIDERS: ATTEND Internal Medicine
DX: E87.8 Other disorders of electrolyte and fluid balance, not elsewhere classified (principal); D64.9 Anemia, unspecified
CPT/HCPCS: 36415; 80053; 85025